=== PATIENT | male | born 1955 | race Caucasian/White ===

== ENCOUNTER → 2018-05-20 12:31 | Outpatient (CLI) | payer OTHER, SELFPAY ==
--- NOTE | 2018-05-20 12:35 | MR_ITS ---
MR lumbar spine wo con, MR 3-d myelogram/MRCP HISTORY: PT states low back pain X 1 YR or longer. RT leg pain, numbness and tingling. ITS.REASON: LOW BACK PAIN ORDERING PHYSICIAN: Bekah Ortez PATIENT AGE: 63 years Comparison: X-RAY 10-16-16 TECHNIQUE: Standard multiplanar multiecho sequences are performed without contrast. 3-D MIP and myelographic images are also rendered and reviewed FINDINGS: There is normal alignment. The spinal cord ends at L1 level. T11-T12: Mild degenerative disc disease with endplate irregularity of the superior endplate of T12. T12-L1: Unremarkable. L1-L2: Mild disc desiccation with minimal degenerative disc disease L2-L3: Unremarkable L3-L4 and L4-L5: Minimal bulging disc with mild facet and ligamentum flavum hypertrophy with mild bilateral lateral recess and foraminal narrowing. L5-S1: Bulging disc with facet and ligamentum flavum hypertrophy with mild bilateral foraminal narrowing No disc herniation or canal stenosis. Incidental note made of a exophytic right renal cyst projected medially at 16 mm with decreased signal intensity on posterior aspect of the cyst IMPRESSION: 1. Mild multilevel lumbar spondylosis with minimal bulging disc, facet and ligamentum flavum hypertrophy with mild lateral recess and foraminal narrowing from L3 to S1 2. No disc herniation or canal stenosis
== END ==
PROVIDERS: PCP Nurse Practitioner Family; Visit Provider Nurse Practitioner Family
DX: M54.5 Low back pain (principal)
CPT/HCPCS: 72148; 76376

== ENCOUNTER → 2020-09-07 10:43 | Outpatient (POV) | payer OTHER, SELFPAY | PROVIDERS: Visit Provider Dermatology | DX: Z00.00 Encounter for general adult medical examination without abnormal findings (principal) ==

== ENCOUNTER → 2022-10-12 13:30 | Outpatient (CLI) | payer MEDICARE, SELFPAY ==
--- NOTE | 2022-10-12 13:39 | MR_ITS ---
FINAL REPORT CLINICAL HISTORY: CERVICAL RAD. left sided neck and tingling. numbness in right hand. symptoms [id number]. FINDINGS: Multi planar MR imaging was obtained of the cervical spine. There is abnormal decreased signal throughout the cervical discs. The vertebrae are of normal height. There is moderate loss of disc space height at C6-7. There is no malalignment. The cervical cord demonstrates normal signal and configuration. C2-C3: There is no evidence of significant disc bulge or protrusion. There is no significant facet hypertrophy. C3-C4: There is a broad-based midline disc protrusion with mild to moderate compromise of the spinal canal. C4-C5: Mild diffuse disc bulge and endplate hypertrophy are present. There is mild right neural foraminal narrowing. There is mild to moderate left neural foraminal narrowing. C5-C6: Mild diffuse disc bulge is present. There is endplate hypertrophy, eccentric to the left. There is moderate left neural foraminal narrowing. C6-C7: Moderate diffuse disc bulge and endplate hypertrophy are present. There is moderate to high-grade bilateral neural foraminal narrowing. C7-T1: There is no evidence of significant disc bulge or protrusion. There is no significant facet hypertrophy. IMPRESSION: Broad-based midline disc protrusion at L3-4 with mild to moderate spinal canal compromise. Diffuse disc bulge and endplate hypertrophy at C6-7 with moderate to high-grade bilateral neural foraminal narrowing. Reviewed, Interpreted and Dictated by Refugio Swann MD Transcribed by Carolina Pollack Authenticated and [facility]
== END ==
PROVIDERS: PCP Nurse Practitioner Family; Visit Provider Nurse Practitioner Family
DX: M54.12 Radiculopathy, cervical region (principal)
CPT/HCPCS: 72141; 76376

== ENCOUNTER 2022-12-14 08:00 | Outpatient (RCR) | payer MEDICARE, SELFPAY | END 2022-12-18 13:55 | disposition home or self-care (01) | LOC: PT 08:00 | PROVIDERS: PCP Nurse Practitioner Family; Visit Provider Orthopaedic Surgery | DX: M50.30 Other cervical disc degeneration, unspecified cervical region (principal); M50.223 Other cervical disc displacement at C6-C7 level | CPT/HCPCS: 97012; 97110; 97112; 97140; 97163; 97164 ==

== ENCOUNTER 2023-06-15 14:44 | Outpatient (CLI) | payer MEDICARE, SELFPAY ==
--- NOTE | 2023-06-15 14:54 | CT_ITS ---
FINAL REPORT TECHNIQUE: Thin section axial images were obtained from the lung apices to the upper abdomen by computed tomography. Reformatted images were obtained and reviewed. This study was performed with techniques to keep radiation doses al low as reasonably achievable (ALARA). Individualized dose reduction techniques using automated exposure control or adjustment of mA and/or kV according to the patient's size were employed. CLINICAL HISTORY: TOBACCO USE pipe smoker, smoked 6-8 times a day for 30 years FINDINGS: CHEST CT LOW DOSE CTDI vol (mGy): 2.90 DLP (mGy-cm): 103.42 There is moderate left coronary artery calcification. There is no axillary adenopathy. There is no mediastinal or hilar mass or adenopathy. The heart is normal in size. There is no pericardial or pleural effusion. Lung window images demonstrate no suspicious infiltrate or nodule. There are several calcified granulomas in the right lung. Limited images of the upper abdomen are unremarkable. IMPRESSION: Lung-RADS category 1. Recommend 12 month follow up low dose chest CT. Reviewed, Interpreted and Dictated by Manuel Jacobs III, MD Transcribed by Carolina Pollack Authenticated and [facility]
== END 2023-06-15 23:59 ==
LOC: RAD 14:44
PROVIDERS: PCP Nurse Practitioner Family; Visit Provider Nurse Practitioner Family
DX: F17.210 Nicotine dependence, cigarettes, uncomplicated (principal)
CPT/HCPCS: 71271

== ENCOUNTER 2024-07-02 10:02 | Outpatient (CLI) | payer MEDICARE, SELFPAY ==
--- NOTE | 2024-07-02 10:06 | US_ITS ---
FINAL REPORT TECHNIQUE: Ultrasound images of the abdominal aorta were obtained. CLINICAL HISTORY: .aaa screening FINDINGS: ULTRASOUND OF THE ABDOMINAL AORTA The aorta measures up to 2.2 cm. The bifurcation is normal. IMPRESSION: No evidence of abdominal aortic aneurysm. Reviewed, Interpreted and Dictated by Refugio Swann MD Transcribed by Argelia Conklin Authenticated and [facility]
--- NOTE | 2024-07-02 10:07 | CT_ITS ---
FINAL REPORT TECHNIQUE: Axial CT images of the chest were obtained without contrast. Low-dose protocol was utilized. This study was performed with techniques to keep radiation doses as low as reasonably achievable (ALARA). Individualized dose reduction techniques using automated exposure control or adjustment of mA and/or kV according to the patient's size were employed. CLINICAL HISTORY: SCREENING SMOKER 36 YEARS 1 PPD MOTHER HX LUNG CANCER COMPARISON: 06/15/2023 FINDINGS: CT CHEST WITHOUT, LOW DOSE SCREENING CT Di Vol: 2.90 mGy DLP: 104.99 mGy*cm There are small scattered calcified mediastinal and right hilar lymph nodes. The heart size is normal. There is no pleural or pericardial effusion. The lung windows show no suspicious mass or nodule. There is a calcified granuloma in the superior segment of the right lower lobe. Limited images of the upper abdomen demonstrate no acute findings. IMPRESSION: LR Category 1: 12 month follow-up low-dose chest CT is recommended per Fleischner criteria. Reviewed, Interpreted and Dictated by Refugio Swann MD Transcribed by Argelia Conklin Authenticated and [facility]
== END 2024-07-02 23:59 | disposition home or self-care (01) ==
LOC: RAD 10:02
PROVIDERS: PCP Nurse Practitioner Family; Visit Provider Nurse Practitioner Family
DX: F17.210 Nicotine dependence, cigarettes, uncomplicated (principal); Z13.6 Encounter for screening for cardiovascular disorders
CPT/HCPCS: 71271; 76770